=== PATIENT | male | born 1980 | race Caucasian/White ===

== ENCOUNTER 2017-09-18 11:02 | Emergency (ER) | payer OTHER ==
--- NOTE | 2017-09-18 12:33 | RAD REPORT ---
EXAM DESCRIPTION: CT - Head Brain Wo Cont - 09/18/2017 12:16 pm CLINICAL HISTORY: Syncope with dizziness and nausea COMPARISON: None. TECHNIQUE: Computed axial tomography of the head was obtained. IV contrast was not requested. All CT scans are performed using dose optimization technique as appropriate and may include automated exposure control or mA/KV adjustment according to patient size. FINDINGS: An intracranial bleed is not seen . The ventricles are normal in caliber. No extra-axial fluid collection is noted. A 5 centimeter low-density area is present within the right temporal lobe. There is suggestion of a 1 5 millimeter lesion within the right temporal lobe. Fluid within the sinuses/ mastoids is not seen. IMPRESSION: A 5 centimeter low-density area within the right temporal lobe may represent a combinati on of mass and surrounding edema. Less likely this represents an acute infarction. It is recommended that the patient have an MRI with contrast for further evaluation. The examination was discussed with Julio Brower in the Emergency Room at 12:20 p.m. September 18
--- NOTE | 2017-09-18 12:49 | RAD REPORT ---
EXAM DESCRIPTION: Noah Single View09/18/2017 12:42 pm CLINICAL HISTORY: Chest pain COMPARISON: none FINDINGS: The lungs appear clear of acute infiltrate. The heart is normal size IMPRESSION: No acute abnormalities displayed
[2017-09-18 12:50] LABS: Protime INR 1.05
[2017-09-18 12:59] LABS: Bicarbonate 25 mEq/L (21-31); Glucose Level 89 mg/dL (65-120); Potassium 3.9 mEq/L (3.6-5.0); Sodium Level 137 mEq/L (135-145)
[2017-09-18 13:05] LABS: ALT/SGPT 69 IU/L (10-60); AST/SGOT 59 IU/L (10-42); Albumin 4.5 g/dL (3.2-5.5); Alkaline Phosphatase 81 IU/L (42-121); BUN Blood Urea Nitrogen 11 mg/dL (6-20); Bilirubin Direct 0.1 mg/dL (0-0.2); Bilirubin Total 0.8 mg/dL (0.3-1.2); Protein, Total 7.5 g/dL (6.0-8.3)
[2017-09-18 13:10] LABS: Absolute Monocytes 0.5 K/uL (0.1-1.3); Absolute Neutrophil 8.4 K/uL (1.8-8.0); Basophils % 0.6 % (0-1.3); Eosinophils % 0.8 % (0-4.4); Hematocrit 44.3 % (39.6-49.0); MCH 29.3 pg (27.0-35.0); MCV 86.1 fL (80-100); MPV 8.8 fL (7.6-11.3); Monocytes % 4.4 % (3.3-12.3); RBC Red Blood Cell Count 5.15 M/uL (4.33-5.43)
--- NOTE | 2017-09-18 14:24 | RAD REPORT ---
EXAM DESCRIPTION: MRI - Brain W/Wo Cont - 09/18/2017 1:54 pm CLINICAL HISTORY: Syncope, altered mental status, abnormal CT study COMPARISON: CT head September 18 TECHNIQUE: Sagittal and axial T1-weighted images were obtained. Axial PD/heavily T2-weighted and T2- FLAIR images were obtained along with axial DWI/ADC mapping sequences. Coronal heavily T2 weighted s equence obtained. Axial and coronal post-contrast T1-weighted images were also obtained. A 20 ml Mul tiHance contrast following utilized. FINDINGS: Approximately 6 centimeter area of hypointense T1 and hyperintense T2/IR signal is present filling most of the right temporal lobe. There is localized mass effect. No ventricular entrapment s een. Signal is predominantly hypointense on diffusion-weighted imaging and predominantly hyperintense on the ADC mapping sequence. Postcontrast imaging demonstrates multiple clustered ring-enhancing les ions within this broader area of signal abnormality. Lesions range from 3 mm to 17 mm in diameter. Elsewhere in the brain parenchyma there is no other area of signal abnormality or enhancement. No sujatha ft across the midline. No other areas of signal abnormality identified. Signal voids are seen as a no rmal finding in the major intracranial vessels. No globe or orbital content abnormality. Mastoid air cells are clear. Significant mucosal thickening changes are present in the maxillary sinuses. Mastoid air cells and paranasal sinuses are clear. Findings discussed with the referring clinician 1405 hours. IMPRESSION: Multiple clustered ring-enhancing lesions 3-17 mm in size contained within a 6 centimete r area of edema filling the right temporal lobe. GBM or other primary brain malignancy is the most likely etiology. MS or infection etiologies are unl ikely. No other brain parenchymal abnormalities outside of the right temporal lobe. Prominent paranasal sinus mucosal thickening. No air-fluid level.
--- NOTE | 2017-09-18 15:11 | EDPHYS ---
Physician Documentation [facility] Name: Kei Munoz Age: 37 yrs Sex: Male : 1980 Arrival Date: 09/18/2017 Time: 11:05 Bed 19 Private MD: Cris Torres H ED Physician Brian Albarran HPI: 09/18 13:48 This 37 yrs old Male presents to ER via Wheelchair with complaints of Passed jr8 Out Prior To Arrival. 13:48 The patient has experienced syncope. Onset: The symptoms/episode began/occurred jr8 acutely, today. Duration: This was a single episode. Context: the episode(s) was witnessed, by family. Associated injury: Head/face: contusion. Associated signs and symptoms: Pertinent negatives: agitation, blurred vision, chest pain, confusion, diaphoresis, dizziness, headache, nausea, palpitations, shortness of breath, vertigo, vomiting, weakness. Current symptoms: Currently, the patient is not experiencing any symptoms, the patient feels back to baseline, no decreased level of consciousness, no confusion, no dysphasia, no headache, no paralysis, no visual changes. The patient has not experienced similar symptoms in the past. The patient has been recently seen by a physician:. Patient stated for the past couple of weeks has noticed periodic renu vu like sensations and odd dissociative memories. Had near syncopal episode in Dr. Zavala office today. Syncopal episode prior to that. Dr. Zavala referred patient to ED for further work up and evaluation of syncope and other neurological symptoms . Historical: - Allergies: 11:31 NKA; iw - Home Meds: 12:23 None [Active]; iw - PMHx: 12:23 None; iw - PSHx: 11:31 None; iw - Immunization history:: Adult Immunizations up to date. - Social history:: Smoking status: Patient/guardian denies using tobacco. ROS: 13:48 Eyes: Negative for injury, pain, redness, and discharge, ENT: Negative for injury, jr8 pain, and discharge, Neck: Negative for injury, pain, and swelling, Cardiovascular: Negative for chest pain, palpitations, and edema, Respiratory: Negative for shortness of breath, cough, wheezing, and pleuritic chest pain, Abdomen/GI: Negative for abdominal pain, nausea, vomiting, diarrhea, and constipation, Back: Negative for injury and pain, MS/Extremity: Negative for injury and deformity, Skin: Negative for injury, rash, and discoloration. 13:48 Neuro: Positive for dizziness, headache. Exam: 13:48 Eyes: Pupils equal round and reactive to light, extra-ocular motions intact. Lids and jr8 lashes normal. Conjunctiva and sclera are non-icteric and not injected. Cornea within normal limits. Periorbital areas with no swelling, redness, or edema. ENT: Nares patent. No nasal discharge, no septal abnormalities noted. Tympanic membranes are normal and external auditory canals are clear. Oropharynx with no redness, swelling, or masses, exudates, or evidence of obstruction, uvula midline. Mucous membranes moist. Neck: Trachea midline, no thyromegaly or masses palpated, and no cervical lymphadenopathy. Supple, full range of motion without nuchal rigidity, or vertebral point tenderness. No Meningismus. Cardiovascular: Regular rate and rhythm with a normal S1 and S2. No gallops, murmurs, or rubs. Normal PMI, no JVD. No pulse deficits. Respiratory: Lungs have equal breath sounds bilaterally, clear to auscultation and percussion. No rales, rhonchi or wheezes noted. No increased work of breathing, no retractions or nasal flaring. Abdomen/GI: Soft, non-tender, with normal bowel sounds. No distension or tympany. No guarding or rebound. No evidence of tenderness throughout. Back: No spinal tenderness. No costovertebral tenderness. Full range of motion. Skin: Warm, dry with normal turgor. Normal color with no rashes, no lesions, and no evidence of cellulitis. MS/ Extremity: Pulses equal, no cyanosis. Neurovascular intact. Full, normal range of motion. Neuro: Awake and alert, GCS 15, oriented to person, place, time, and situation. Cranial nerves II-XII grossly intact. Motor strength 5/5 in all extremities. Sensory grossly intact. Cerebellar exam normal. Normal gait. Vital Signs: 11:31 BP 120 / 80; Pulse 78; Resp 16 S; Temp 97.5(TE); Pulse Ox 99% on R/A; Pain 0/10; iw 12:53 BP 120 / 88 Supine; Pulse 75; Resp 20; Pulse Ox 99% on R/A; Pain 0/10; em 12:53 BP 126 / 86 Sitting; Pulse 79; Resp 18; Pulse Ox 98% on R/A; em 12:53 BP 122 / 82 Standing; Pulse 88; Resp 18; em 13:58 BP 130 / 80; Pulse 81; Resp 17; Pulse Ox 98% on R/A; em 15:15 BP 120 / 83; Pulse 83; Resp 18; Temp 98.1; Pulse Ox 100% on R/A; Pain 0/10; em MDM: 11:33 Patient medically screened. [facility] 15:09 Data reviewed: vital signs, nurses notes, lab test result(s), EKG, radiologic studies, [facility] CT scan, MRI, plain films. Data interpreted: Pulse oximetry: on room air is 98 %. Interpretation: normal. Counseling: I had a detailed discussion with the patient and/or guardian regarding: the historical points, exam findings, and any diagnostic results supporting the discharge/admit diagnosis, lab results, radiology results, the need to transfer to another facility, for higher level of care, [facility] does not immediately have the required specialist. ED course: [facility] contacted and will accept patient for neurosurgical evaluation . 09/18 12:06 Order name: Basic Metabolic Panel; Complete Time: 13:11 09/18 12:06 Order name: BNP; Complete Time: 13:09/18 12:06 Order name: CBC with Diff; Complete Time: 13:34 8 09/18 12:06 Order name: LFT's; Complete Time: 13:11 09/18 12:06 Order name: Magnesium; Complete Time: 13:11 09/18 12:06 Order name: PT-INR; Complete Time: 13:11 09/18 12:06 Order name: XRAY Chest (1 view); Complete Time: 13:11 09/18 12:06 Order name: EKG; Complete Time: 12:07 09/18 12:06 Order name: Troponin (emerg Dept Use Only); Complete Time: 13:11 8 09/18 12:06 Order name: CT Head Brain wo Cont; Complete Time: 12:47 jr8 09/18 12:47 Order name: Brain W/Wo Cont; Complete Time: 14:28 EDWV 09/18 15:04 Order name: Urine Dipstick--Ancillary (enter results); Complete Time: 15:22 sg 09/18 12:06 Order name: Cardiac monitoring; Complete Time: 12:43 jr8 09/18 12:06 Order name: EKG - Nurse/Tech; Complete Time: 12:42 jr8 09/18 12:06 Order name: IV Saline Lock; Complete Time: 12:43 8 09/18 12:06 Order name: Labs collected and sent; Complete Time: 12:45 8 09/18 12:06 Order name: O2 Per Protocol; Complete Time: 13:13 jr8 09/18 12:06 Order name: O2 Sat Monitoring; Complete Time: 12:44 8 09/18 12:06 Order name: Urine Dipstick-Ancillary (obtain specimen); Complete Time: 13:13 8 09/18 12:06 Order name: Orthostatics; Complete Time: 13:13 jr8 Administered Medications: No medications were administered Disposition: 17:18 Co-signature as Attending Physician, Brian Albarran MD I agree with the assessment and kdr plan of care. Disposition: 09/18/17 15:[address] [facility]. 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 - Reason for transfer: Higher level of care. - Accepting physician is Dr. Billings . - Condition is Stable. - Problem is new. - Symptoms are unchanged. Signatures: Dispatcher [employer] EDMS Brian Albarran MD MD kdr Brandon Hyatt, GATE KEEPER GATE KEEPER em Connie Coleman, RONA RN Julio Vera PA PA jr8 Corrections: (The following items were deleted from the chart) 12:47 12:28 Brain With Cont ordered. EDMS EDMS 12:47 12:37 Brain With Cont+MRI.RAD.BRZ ordered. EDMS EDMS
--- NOTE | 2017-09-18 15:11 | ER ---
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 Choudhury's office and had a near syncopal episode while in office, pt now feeling tired and weak but dizziness is now gone, denies CP or palpitations or SOB. Transition of care: patient was not received from another setting of care. Onset of symptoms was September 18, 2017. Initial Sepsis Screen: Does the patient meet any 2 criteria? No. Patient's initial sepsis screen is negative. Does the patient have a suspected source of infection? No. Patient's initial sepsis screen is negative. Care prior to arrival: None. 11:22 Method Of Arrival: Wheelchair iw 11:22 Acuity: LUZ 3 iw Historical: - Allergies: 11:31 NKA; iw - Home Meds: 12:23 None [Active]; iw - PMHx: 12:23 None; iw - PSHx: 11:31 None; iw - Immunization history:: Adult Immunizations up to date. - Social history:: Smoking status: Patient/guardian denies using tobacco. Screenin:00 Abuse screen: Denies threats or abuse. Nutritional screening: No deficits noted. em Tuberculosis screening: No symptoms or risk factors identified. Fall Risk None identified. Assessment: 11:30 General: Appears in no apparent distress. comfortable, Behavior is calm, cooperative. em General: Reports falling and hitting face this morning, reports having aura type symptoms with "strong imagery and smells" before having a syncopal episode. Pain: Denies pain. Neuro: Level of Consciousness is awake, alert, obeys commands, Oriented to person, place, time, situation, Overcoil Stepper are equal bilaterally Gait is steady, Speech is normal, Reports dizziness, upon standing a syncopal episode Denies. Cardiovascular: Capillary refill < 3 seconds Patient's skin is warm and dry. Respiratory: Airway is patent Respiratory effort is even, unlabored, Respiratory pattern is regular, symmetrical, Breath sounds are clear bilaterally. GI: Abdomen is flat, Reports nausea, vomiting. : Urine is clear. EENT: No signs and/or symptoms were reported regarding the EENT system. Derm: Skin is intact, Skin is pink, warm \\T\\ dry. Wound noted nose Wound is cover with band aid, no apparent bleeding noted. Musculoskeletal: Range of motion: intact in all extremities. 11:40 Reassessment: Patient appears in no apparent distress at this time. I agree with above iw assessment by Brandon Hyatt LVN. 12:40 Reassessment: Patient appears in no apparent distress at this time. Patient and/or em family updated on plan of care and expected duration. Pain level reassessed. Patient is alert, oriented x 3, equal unlabored respirations, skin warm/dry/pink. Patient states symptoms have improved. 13:00 Reassessment: Patient appears in no apparent distress at this time. pt wheeled to [facility] em via wheelchair by medical supply technician. 14:08 Reassessment: Patient appears in no apparent distress at this time. Patient and/or em family updated on plan of care and expected duration. Pain level reassessed. returned from MRI, placed back on the monitor. 14:27 Reassessment: Patient appears in no apparent distress at this time. RICHARD Kim at bedside em to discuss POC. 15:02 Reassessment: Patient appears in no apparent distress at this time. Patient and/or em family updated on plan of care and expected duration. Pain level reassessed. Patient is alert, oriented x 3, equal unlabored respirations, skin warm/dry/pink. Bozena Dolan at bedside. 15:38 Reassessment: Patient appears in no apparent distress at this time. report called to heidi Choudhury RN at [facility], awaiting EMS transport to facility. 15:50 Reassessment: Patient appears in no apparent distress at this time. report given to em EMS. Vital Signs: 11:31 BP 120 / 80; Pulse 78; Resp 16 S; Temp 97.5(TE); Pulse Ox 99% on R/A; Pain 0/10; iw 12:53 BP 120 / 88 Supine; Pulse 75; Resp 20; Pulse Ox 99% on R/A; Pain 0/10; em 12:53 BP 126 / 86 Sitting; Pulse 79; Resp 18; Pulse Ox 98% on R/A; em 12:53 BP 122 / 82 Standing; Pulse 88; Resp 18; em 13:58 BP 130 / 80; Pulse 81; Resp 17; Pulse Ox 98% on R/A; em 15:15 BP 120 / 83; Pulse 83; Resp 18; Temp 98.1; Pulse Ox 100% on R/A; Pain 0/10; em ED Course: 11:05 Patient arrived in ED. rg4 11:05 Cris Torres DO is Private Physician. rg4 11:22 Russell Eng PA is PHCP. cp 11:22 Brian Albarran MD is Attending Physician. cp 11:31 Triage completed. iw 11:31 Antipyretic given from triage as ordered by the ER provider. iw 11:33 Julio Brower PA is PHCP. jr8 11:33 Brian Albarran MD is Attending Physician. jr8 12:[address] jg1 12:14 Brandon Hyatt LVN is Primary Nurse. em 12:16 CT completed. Patient tolerated procedure well. Patient moved back from CT. vm2 12:17 CT Head Brain wo Cont In Process Unspecified. EDMS 12:34 EKG done, by lead quality control technician. reviewed by Julio RAMOS. vh 12:35 X-ray completed. Portable x-ray completed in exam room. Patient tolerated procedure ml well. 12:37 XRAY Chest (1 view) In Process Unspecified. EDMS 12:45 Inserted saline lock: 20 gauge in right antecubital area, using aseptic technique. em Blood collected. 12:45 Initial lab(s) drawn, by me, sent to lab. em 13:02 Patient moved to MRI via wheelchair. em2 13:12 Arm band placed on. em 13:28 Brain W/Wo Cont In Process Unspecified. EDMS 13:54 MRI completed. Patient tolerated well. Patient moved back from MRI. ka 14:06 No provider procedures requiring assistance completed. em 14:18 Patient has correct armband on for positive identification. Bed in low position. Call em light in reach. 14:[address] [facility] at 1434 with Julieta Dueñas Transfer coordination. eb 15:00 \\T\\[id number] Leonarda RAMOS speaking with Dr. Yeh for transfer. eb 15:01 \\T\\[id number] administrative approval given by Julieta Dueñas from [facility] regional transfer liaison eb pt to go to room 2222. 16:13 Patient transferred, IV remains in place. em Administered Medications: No medications were administered Outcome: 15:11 ER care complete, transfer ordered by MD. fraser 16:12 Transferred by ground EMS to [facility], [facility], Transfer form completed. em X-rays sent w/ patient. 16:12 Condition: good 16:12 Instructed on the need for transfer, Demonstrated understanding of instructions. 16:14 Patient left the ED. em Signatures: Dispatcher [employer] Siomara Alvarez jBrandon Feliciano, WELL DRILL OPERATOR CABLE TOOL WELL DRILL OPERATOR CABLE TOOL em Connie Coleman, Emilie Santa RN, Josh, PA PA jr8 Ras Ratliff em2 Evette Yang Corey, PA PA cp Aguilera, Katelyn ka Garcia, Rubi 4 Brittani Marquez 2 Amy Connor Corrections: (The following items were deleted from the chart) 13:11 13:05 General: Appears in no apparent distress. comfortable, Behavior is calm, em cooperative, em 13:11 13:05 Pain: Denies pain. em em 13:11 13:05 General: Reports falling and hitting face this morning, reports having aura type em symptoms and having a syncopal episode em 13:11 13:05 Neuro: Level of Consciousness is awake, alert, obeys commands, Oriented to em person, place, time, situation, Overcoil Stepper are equal bilaterally Gait is steady, Speech is normal, Reports dizziness, upon standing em 13:11 13:05 Cardiovascular: Capillary refill < 3 seconds Patient's skin is warm and dry. em em 13:11 13:05 Respiratory: Airway is patent Respiratory effort is even, unlabored, Respiratory em pattern is regular, symmetrical, Breath sounds are clear bilaterally. em 13:11 13:05 GI: Abdomen is flat, em em 13:11 13: : Urine is clear, em em 13: EENT: No signs and/or symptoms were reported regarding the EENT system. em em 13: Derm: Skin is intact, Skin is pink, warm \\T\\ dry. em em 13: Musculoskeletal: Range of motion: intact in all extremities, em em 14: 11:30 General: Reports falling and hitting face this morning, reports having aura type em symptoms and having a syncopal episode em 14 11:30 Derm: Skin is intact, Skin is pink, warm \\T\\ dry. em em 15: 11:31 BP 120 / 80; Pulse 78bpm; Resp 16bpm; Spontaneous; Pulse Ox 99% RA; Pain 0/10; iw iw
[2017-09-18 15:13] LABS: Urine Blood NEGATIVE (NEG); Urine Glucose NEGATIVE (NEG); Urine Protein NEGATIVE (NEG); Urine Specific Gravity 1.015 (1.005-1.030); Urine pH 8.5 (5.0-7.0)
--- NOTE | 2017-09-18 16:24 | EKG ---
Test Date: 2017-09-18 Test Time: 12:27:31 Mechanical Engineering Technologist: AMEYA MEASUREMENT RESULTS: Intervals: Rate: 69 ID: [id number] QRSD: 90 QT: 368 QTc: 394 Brice: P: 68 ID: [id number] QRS: 83 T: 77 INTERPRETIVE STATEMENTS: Normal sinus rhythm Normal ECG No previous ECG available for comparison Electronically Signed On 09-18-17 16:23:28 CDT by Seamus Maharaj
== END 2017-09-18 16:14 | disposition short-term general hospital (02) ==
LOC: ER 11:02
DX: R55 Syncope and collapse (principal); R42 Dizziness and giddiness
CPT/HCPCS: 36415; 70450; 70553; 71045; 80048; 80076; 81003; 83735; 83880; 84484; 85025; 85610; 93005; 99285; A9577

== ENCOUNTER 2018-12-02 18:30 | Emergency (ER) | payer OTHER ==
--- OUTSIDE RECORDS SUMMARY | 2018-12-02 18:32 | XMS REPORT | Clinical Summary ---
:1980 Author Organization [facility] Address [address] [place] [address] Care Team Providers Name Role Phone Denise Primary Care Provider Allergies Active Allergy Reactions Severity Noted Date Comments Grass Pollen-October Grass Standard 09/18/2017 Mold 09/18/2017 Medications Medication Sig Dispensed Refills Start Date End Date Status cetirizine (ZYRTEC) Take 10 mg by 0 Active 10 MG tablet mouth daily. fluticasone (FLONASE) 1 spray by Nasal 0 Active 50 mcg/actuation route 2 (two) nasal spray times daily. montelukast Take 10 mg by 0 Active (SINGULAIR) 10 mg mouth nightly. tablet dexamethasone Take 2 tablets 7 tablet 0 09/25/2017 Active (DECADRON) 1 MG at lunch and tablet dinner time today, then 1 tablet three times a day tomorrow only, then stop. levETIRAcetam Take 1 tablet 60 tablet 2 09/25/2017 09/25/2018 (KEPPRA) 1000 MG (1,000 mg total) tablet by mouth 2 (two) times daily. Active Problems Problem Noted Date Cerebral edema 09/23/2017 Post-operative pain 09/23/2017 Partial seizure 09/21/2017 Brain mass 09/18/2017 Seasonal allergies 09/18/2017 Syncopal episodes 09/18/2017 Encounters Date Type Specialty Care Team Description 09/13/2018 Hospital Encounter Radiology Jude Dickerson Glioblastoma (HCC) MD Mikael 08/20/2018 Orders Only Neurology Jude Dickerson Glioblastoma (HCC) MD Mikael (Primary Dx) 07/20/2018 Hospital Encounter Radiology Jude Dickerson Glioblastoma (HCC) MD Mikael 07/06/2018 Orders Only Neurology Jude Dickerson Glioblastoma (HCC) MD Mikael (Primary Dx) 05/26/2018 Hospital Encounter Radiology Tuan Jude Glioblastoma (HCC) MD Mikael 04/28/2018 Orders Only Neurology Jude Dickerson Glioblastoma (HCC) MD Mikael (Primary Dx) 03/31/2018 Orders Only Neurology Jude Dickerson Glioblastoma (HCC) MD Mikael (Primary Dx) 03/01/2018 Hospital Encounter Radiology Lionel Waters Glioblastoma (HCC) MD Hedy 03/01/2018 Orders Only Neurology Jude Dickerson Glioblastoma (HCC) MD Mikael (Primary Dx) 02/26/2018 Orders Only Radiation Oncology Lionel Waters (HCC ) MD Hedy (Primary Dx) 01/04/2018 Procedure visit Radiation Oncology Lionel Waters MD 01/04/2018 Hospital Encounter Radiology Lionel Waters Glioblastoma (HCC) MD Hedy 01/03/2018 Orders Only Radiation Oncology Lionel Waters Glioblastoma (HCC ) MD Hedy (Primary Dx) after 12/01/2017 Social History Tobacco Use Types Packs/Day Years Used Date Never Smoker Smokeless Tobacco: Never Used Alcohol Use Drinks/Week oz/Week Comments No Sex Assigned at Date Recorded Not on file Job Start Date Occupation Industry Not on file Not on file Not on file Travel History Travel Start Travel End No recent travel history available. Last Filed Vital Signs Not on file Plan of Treatment Not on file Implants Implanted Type Area Clinician Oncology Device Shelf Model / Identifier Expiration Serial / Date Lot Loyd [facility] Full Strlprep 10ml [id number] - [id number] Cement/F Right: LOREDO: BIOSCI 02/05/2019 [id number] / Implanted: Qty: 1 on 09/22/2017 by Merrill Marrufo MD iller/Bebeto Head / hesive [id number] Sealant Durasl Spine 5ml [id number] - [id number] Cement/F Right: [employer]TE[employer]RA LIFESCI 07/22/2018 [id number] / Implanted: Qty: 1 on 09/22/2017 by Merrill Marrufo MD iller/Bebeto Head / hesive [id number] Plt W/Tab Un3 2h [id number] - [id number] Fracture Right: LUIS ALBERTO:CRANIOMA [id number] / Implanted: Qty: 1 on 09/22/2017 by Merrill Marrufo MD /Fixatio Head XILLOFACIAL / n Cover Giovanna Hole Low Prof 14mm [id number] - [id number] Fracture Right: LUIS ALBERTO: LUIS ALBERTO [id number] / Implanted: Qty: 1 on 09/22/2017 by Merrill Marrufo MD /Fixatio Head LEIBINGER / n Plt Un3 16h Str [id number] - [id number] Fracture Right: LUIS ALBERTO:CRANIOMA [id number] / Implanted: Qty: 1 on 09/22/2017 by Merrill Marrufo MD /Fixatio Head XILLOFACIAL / n Scr Un3 [place] Self Drl 1.5x4mm [id number] - [id number] Fracture Right: LUIS ALBERTO: CRANIOMA [id number] / Implanted: Qty: 14 on 09/22/2017 by Merrill Marrufo MD /Fixatio Head XILLOFACIAL / n Procedures Procedure Name Priority Date/Time Associated Diagnosis Comments MR BRAIN WITHOUT & Routine 09/13/2018 3:25 Glioblastoma (HCC) Results for this WITH IV CONTRAST PM CDT procedure are in the results section. MR BRAIN WITHOUT & Routine 07/20/2018 11:00 Glioblastoma (HCC) Results for this WITH IV CONTRAST AM ASSEMBLER GARMENT FORM procedure are in the results section. MR BRAIN WITHOUT & Routine 05/26/2018 9:31 Glioblastoma (HCC) Results for this WITH IV CONTRAST AM ASSEMBLER GARMENT FORM procedure are in the results section. MR BRAIN WITHOUT & Routine 03/01/2018 11:40 Glioblastoma (HCC) Results for this WITH IV CONTRAST AM CDT procedure are in the results section. MR BRAIN WITHOUT & Routine 01/04/2018 8:58 Glioblastoma (HCC) Results for this WITH IV CONTRAST AM CDT procedure are in the results section. after 12/01/2017 Results MR brain without & with IV contrast (09/13/2018 3:25 PM CDT)Only the most recent of5 resultswithin the time period is included. Specimen Narrative Performed At FINAL REPORT [facility] MR, BRAIN, WITH \T\ WITHOUT CONTRAST INDICATION: Neoplasm: head, SERVICE LINE LAYER, rx monitor or f/u TECHNIQUE: Multiplanar, multisequence MR imaging of the brain was obtained before and after uneventful administration of gadolinium contrast. COMPARISON: 07/20/18 FINDINGS: The area of increased linear enhancement noted in the most recent examination has increased in size, now measuring approximately 11 mm in greatest transverse dimension. Additionally, there is nodular enhancement along the medial/inferior portion of the resection cavity (axial image 10, annotated sagittal image 22). Increased T2/FLAIR signal is also present adjacent to this lesion, greater in volume than in the prior exam. A peripheral focus of enhancement abutting the skull base measures 11 mm in greatest transverse dimension. Multiple additional subcentimeter nodular foci are annotated on sagittal series (images 19, 20, 21, and 23). No abnormal signal characteristics or postcontrast enhancement is identified in the left hemisphere or within the posterior fossa. The resection cavity volume is unchanged. Orbital contents are unremarkable. Paranasal sinuses are clear. IMPRESSION: Progression of intracranial metastatic disease as evidenced by increasing volume, enhancement and surrounding T2/FLAIR hyperintensity in the previously noted peripheral lesion in the resection cavity as well as multiple distal lesions in the right temporal lobe. Signed: JR Connor Robert MD Report Verified Date/Time:09/13/2018 17:50:06 Reading Location: [facility] Radiology Reading Room Procedure Note Interface, External Ris In - 09/13/2018 5:52 PM CDT FINAL REPORT MR, BRAIN, WITH \T\ WITHOUT CONTRAST INDICATION: Neoplasm: head, SERVICE LINE LAYER, rx monitor or f/u TECHNIQUE: Multiplanar, multisequence MR imaging of the brain was obtained before and after uneventful administration of gadolinium contrast. COMPARISON: 07/20/18 FINDINGS: The area of increased linear enhancement noted in the most recent examination has increased in size, now measuring approximately 11 mm in greatest transverse dimension. Additionally, there is nodular enhancement along the medial/inferior portion of the resection cavity (axial image 10, annotated sagittal image 22). Increased T2/FLAIR signal is also present adjacent to this lesion, greater in volume than in the prior exam. A peripheral focus of enhancement abutting the skull base measures 11 mm in greatest transverse dimension. Multiple additional subcentimeter nodular foci are annotated on sagittal series (images 19, 20, 21, and 23). No abnormal signal characteristics or postcontrast enhancement is identified in the left hemisphere or within the posterior fossa. The resection cavity volume is unchanged. Orbital contents are unremarkable. Paranasal sinuses are clear. IMPRESSION: Progression of intracranial metastatic disease as evidenced by increasing volume, enhancement and surrounding T2/FLAIR hyperintensity in the previously noted peripheral lesion in the resection cavity as well as multiple distal lesions in the right temporal lobe. Signed: JR Nikolas, Orquidea LORENZO Report Verified Date/Time: 09/13/2018 17:50:06 Reading Location: [facility] Reading Room Performing Organization Address City/State/Zipcode Phone Number GE RIS after 12/01/2017 Insurance Payer Benefit Plan / Group Subscriber ID Type Phone Address [employer] - [employer] SELECT US ACCESS xxxxxxxxxx HMO/POS ([place]) [place] [address] Advance Directives For more information, please contact:[address] [phone] Code Status Date Activated Date Inactivated Comments Full Code 09/22/2017 2:25 PM 09/25/2017 1:22 PM This code status was determined by: Patient Full Code 09/18/2017 6:17 PM 09/22/2017 2:25 PM This code status was determined by: Patient
--- OUTSIDE RECORDS SUMMARY | 2018-12-02 18:32 | XMS REPORT ---
:1980 [facility] Address [address] [place] [address] Dr. Vieyra [address] [place] [id number] Care Team Providers Name Role Phone BENJAMIN DUTTONMarilee Unavailable Unavailable Problems This patient has no known problems. Allergies, Adverse Reactions, Alerts This patient has no known allergies or adverse reactions. Medications This patient has no known medications. Results Test Description Test Time Test Comments Text Results Atomic Results Result Comments MR, BRAIN, WITH 2018-09-13 17:50:00 FINAL REPORT MR, BRAIN, WITH \\T\\ WITHOUT CONTRAST INDICATION: Neoplasm: head, ARM[employer], rx monitor or f/u TECHNIQUE: Multiplanar, multisequence MR imaging of the brain was obtained before and after uneventful administration of gadolinium contrast. COMPARISON: 07/20/18 FINDINGS:The area of increased linear enhancement noted in [...] right temporal lobe. Signed: JR Connor Robert MDReport Verified Date/Time: 09/13/2018 17:50:06 Reading Location: [facility] Radiology Reading Room , BRAIN, WITH 2018-07-20 14:34:00 FINAL REPORT MRI Brain with and without contrast Clinical History: Neoplasm: head, ARM[employer]LE [employer], recurrence, suspected/known Technique: MRI of the brain utilizing axial T1, T2, FLAIR, GRE, DWI, sagittal T1; and postgadolinium axial, sagittal, and coronal T1-weighted images. Comparisons: MRI 05/26/2018, 03/01/2018, 01/04/2018, 09/23/2017 Findings: Right sided craniotomy changes are again seen with an anterior temporal cystic resection cavity. There is a new 4 mm linear focus of enhancement along the posterior superior surgical margin abutting the temporal lobe. Adjacent marginal nonenhancing FLAIR signal abnormality also appear slightly increased. Right insular FLAIR signal abnormality is unchanged without additional areas of abnormal enhancement. There is no evidence of acute infarct or hemorrhage. There is no hydrocephalus or midline shift. The craniocervical junction is preserved. The major intracranial flow-voids appear patent. IMPRESSION: Since 05/26/2018, new focal linear enhancement along the posterior superior temporal resection margin with slightly increased FLAIR signal abnormality. The appearance is compatible with progression of residual neoplasm. Signed: Rupali Sher MDReport Verified Date/Time: 07/20/2018 14:34:38 Reading Location: [facility] Neuro Reading Room , BRAIN, WITH 2018-05-26 10:22:00 FINAL REPORT MR, BRAIN, WITH \\T\\ WITHOUT CONTRAST INDICATION: Neoplasm: head, ARM[employer], rx monitor or f/u TECHNIQUE: Multiplanar, multisequence MR imaging of the brain was obtained before and after uneventful administration of gadolinium contrast. COMPARISON: March 01, 2018 FINDINGS:Stable cystic changes within the right middle cranial fossa resection cavity. Previously noted increased T2 signal along the posterior margin of the resection cavity and involving the right external capsule are stable. There is no associated postcontrast enhancement. Evaluation of the remaining brain parenchyma in both supratentorial and infratentorial compartments reveals no abnormal signal or postcontrast enhancement. Midline is normally positioned. Vascular structures are unremarkable. The craniocervical junction is normal. Ventricular configuration is within normal limits. There is no acute osseous abnormality. Paranasal sinuses reveal mild mucosal polyposis and thickening in the maxillary sinuses, greater on the left. IMPRESSION: Stable operative changes in the middle cranial fossa without evidence for progression or recurrence. Signed: JR Connor Robert MDReport Verified Date/Time: 05/26/2018 10:22:37 Reading Location: [facility] Radiology Reading Room , BRAIN, WITH 2018-03-01 14:14:00 Location->[facility] FINAL REPORT PATIENT ID: Favio Duff [id number] MRI brain with and without contrast Comparison: None Reason for exam: January 04, 2018 Discussion: Multiplanar MR imaging of the brain was provided eoj-uwx-jrit IV gadolinium administration using T1, T2, FLAIR, T2 star, diffusion weighted sequences, and ADC map imaging. Right-sided craniotomy changes are noted with right-sided anterior temporal lobectomy cavity. Nonenhancing hazy T2 hyperintense signal alterations are seen involving the insula and the residual medial temporal lobe unchanged. No concerning regional enhancement. There are no intracranial hematomas, other masses, hydrocephalus, shift, or extra-axial collections. There are no areas of abnormal enhancement or abnormal diffusion restriction. Flow-voids are seen in the basilar and internal carotid arteries as well as in the large posterior dural sinuses. The pineal, sella, and craniocervical junction regions are unremarkable. The visualized orbital contents, skullbase and surrounding soft tissues are unremarkable. Mucosal thickening is seen within the maxillary sinuses. Impressions: Stable postoperative appearance with residual nonenhancing insula and medial temporal signal alterations. Signed: Paras Abarca Verified Date/Time: 03/01/2018 14:14:37 Reading Location: [facility] B1 C013V Neuro Reading Room , BRAIN, WITH 2018-01-04 10:51:00 Location->[facility] FINAL REPORT PATIENT ID: Favio Duff [id number] MRI brain with and without contrast Comparison: October 14, 2017 Reason for exam: GBM status post surgery and chemoradiation Discussion: Multiplanar MR imaging of the brain was provided pps-adj-jdce IV gadolinium administration using T1, T2, FLAIR, T2 star, diffusion weighted sequences, and ADC map imaging. There is a right temporal lobe operative cavity anteriorly with some areas of hemosiderin stain lining the posterior cavity margin. There is no concerning enhancement currently. Ill-defined T2 hyperintense signal alteration is seen involving insula concerning for nonenhancing subtle neoplasm. Similar signal alteration is seen in the residual right medial temporal and hippocampal region where additional nonenhancing neoplasm could not be excluded. No intracranial hematoma, hydrocephalus, midline shift, extra-axial collection. There are no other areas of abnormal enhancement or abnormal diffusion restriction. Flow-voids are seen in the basilar and internal carotid arteries as well as in the large posterior dural sinuses. The pineal, sella, and craniocervical junction regions are unremarkable. The visualized orbital contents, paranasal sinuses, skullbase and surrounding soft tissues are unremarkable. Impressions: Subtle nonenhancing signal alterations near the right temporal lobe operative cavity as discussed concerning for nonenhancing neoplasm. No current concerning enhancement. Signed: Paras Abarca Verified Date/Time: 01/04/2018 10:51:55 Reading Location: [address] Neuro Reading Room , BRAIN, WITH 2017-10-14 16:07:00 FINAL REPORT MRI Brain with and without contrast INDICATION: Malignant neoplasm of brain. TECHNIQUE: Multiplanar, multisequence MR imaging of the brain was performed, utilizing the following imaging sequences: Axial T1, T2, FLAIR, DWI, GRE; sagittal T1; postcontrast axial, sagittal, and coronal T1. High-resolution axial postcontrast T1-weighted images were obtained per [employer] protocol COMPARISON: MRI brain 09/23/2017 FINDINGS:There is evolution of right sided craniotomy changes with anterior temporal lobe operative cavity, partial resorption of operative site and extra axial hemorrhages, and improvement in operative cavity margin edema. New mild operative cavity margin enhancement suggests granulation changes, though minimal enhancing neoplasm cannot be excluded. A new 5 mm focus of nodular enhancement in the right inferior basal ganglia is suggestive of neoplasm. Small diffusion restricted foci on the operative cavity margins in the right mesial temporal lobe may reflect residual ischemia and/or hypercellular neoplasm. There are nonenhancing signal changes in the right temporal lobe, hippocampus, insula, and operculum are in keeping with infiltrative neoplasm. Mass effect is improved, with no current midline shift. A 3-4 mm extra axial collection is seen beneath the craniotomy site. Pneumocephalus has resolved. There is no hydrocephalus or acute infarct. The major pit[place]'s point of [place] flow voids are maintained. The sella, craniocervical junction, and orbits are unremarkable. There is chronic polypoid sinus mucosal disease and moderate volume right mastoid air cell fluid. Scalp postoperative changes and edema are improved. IMPRESSION: Since 09/23/2017, improved post operative changes with operative cavity margin granulation changes and new small right inferior basal ganglia enhancing focus suggestive of neoplasm. Nonenhancing signal changes in keeping with infiltrative neoplasm again noted. No worrisome current mass effect. Signed: Bridger Wadsworth MDReport Verified Date/Time: 10/14/2017 16:07:37 Reading Location: [address] Consult Reading Room UE EXAM 2017-10-05 11:54:00 Surgical Pathology Report Case: [id number] Authorizing Provider: Merrill Marrufo MD Collected: 09/22/2017 1027 Ordering Location: [facility] PERIOPERATIVE Received: 09/22/2017 1032 SERVICES Pathologist: Oscar Lara MD Specimens: A) - Tumor, right temporal tumor B) - Tumor, right temporal tumor Outside molecular studies are performed at [facility] for assessment of MGMT gene promoter methylation. It is NOT DETECTED in this patient's tumor.Please see attached report.Addendum electronically signed by Oscar Lara MD on 10/05/2017 at 11:54 AMA. 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 An addendum report will be issued upon receipt of these results.[id number] of right temporal lobeA. Right temporal tumor; B. Mass of right temporal lobeA. Received fresh for intraoperative consultation labeled with the patient's information and "right temporal tumor" is a 1 x 0.9 x 0.3 cm aggregate of chicas-white hemorrhagic soft glistening tissue. A squash prep is performed. A portion of the specimen is submitted for frozen section diagnosis in FSA1. The remainder of the specimen is submitted in A1. SH/plB. Received in formalin labeled with the patient's information, "right temporal tumor" is a 6 x 5.6 x 2.5 cm aggregate of chicas-white soft tissue with abundant necrosis and hemorrhage. Sectioning reveals a chicas-white friable cut surface within normal-appearing brain parenchyma. Fire Technician sections of tissue are submitted in cassette B1 through B6. SH/plRIGHT TEMPORAL LOBE TUMOR, CRANIOTOMY: - GLIOBLASTOMA THESE FINDINGS ARE REPORTED TO OR-[address] LARA ON September AT 10:51 A.M.A-B. Sections of tumor show normal brain parenchyma infiltrated by atypical large tumor cells with high nuclear to cytoplasmic ratios, nuclear hyperchromasia, multinucleation, and irregular borders. The chromatin is vesicular with prominent nucleoli. There is abundant necrosis, with and without pseudopalisading, and vascular proliferation. The tumor cells are positive for GFAP and p53. The tumor cells are negative for IDH-1. The following special studies were performed on this case and the interpretation is incorporated in the diagnostic report above: Block A2- IDH1, GFAP, p53. The immunohistochemistry test was developed and its performance characteristics determined by [facility], Pathology Laboratory. It has not been cleared or approved by the U.S. Food and Drug Administration. The FDA has determined that such clearance or approval is not necessary. The test is used for clinical purposes. It should not be regarded as investigational or for research. This laboratory is certified under the Clinical Laboratory Improvement Amendments of 1988 (CLIA-88) as qualified to perform high complexity clinical laboratory testing. TOXOPLASMA GONDII ANTIBODY, IGM 2017-09-25 15:04:00 Test Item Value Reference Range Comments TOXOPLASMA IGM ANTIBODY (KEMAR) (test huyj=639) Negative POCT-GLUCOSE [id number] 09:02:00 Test Item Value Reference Range Comments POC-GLUCOSE METER (BEAKER) 87 mg/dL 70-[address] [facility] [address] (test ztev=1209) [facility] [address] BASIC METABOLIC [id number] 05:48:00 Test Item Value Reference Range Comments SODIUM (BEAKER) (test 136 meq/L 136-145 aqzp=618) POTASSIUM (BEAKER) (test 4.7 meq/L 3.5-5.1 Specimen slightly omik=677) hemolyzed CHLORIDE (BEAKER) (test 108 meq/L 98-107 gkgk=890) CO2 (BEAKER) (test 17 meq/L 22-29 euig=525) BLOOD UREA NITROGEN 23 mg/dL 7-21 (BEAKER) (test mroo=946) CREATININE (BEAKER) (test 0.66 mg/dL 0.57-1.25 Specimen slightly this=669) hemolyzed GLUCOSE RANDOM (BEAKER) 114 mg/dL 70-105 (test gpew=240) CALCIUM (BEAKER) (test 9.0 mg/dL 8.4-10.2 dqyr=551) EGFR (BEAKER) (test 137 mL/min/1.73 sq m ESTIMATED GFR IS NOT ceor=9507) ACCURATE CREATININE CLEARANCE IN PREDICTING GLOMERULAR FILTRATION RATE. ESTIMATED GFR IS NOT APPLICABLE FOR DIALYSIS PATIENTS. CBC W/PLT COUNT & AUTO [id number] 05:35:00 Test Item Value Reference Range Comments WHITE BLOOD CELL COUNT (BEAKER) (test eecc=418) 17.4 K/ L 3.5-10.5 RED BLOOD CELL COUNT (BEAKER) (test jrwi=235) 4.01 M/ L 4.63-6.08 HEMOGLOBIN (BEAKER) (test eceu=926) 11.5 GM/DL 13.7-17.5 HEMATOCRIT (BEAKER) (test iegz=489) 34.8 % 40.1-51.0 MEAN CORPUSCULAR VOLUME (BEAKER) (test uunb=382) 86.8 fL 79.0-92.2 MEAN CORPUSCULAR HEMOGLOBIN (BEAKER) (test 28.7 pg 25.7-32.2 auii=244) MEAN CORPUSCULAR HEMOGLOBIN CONC (BEAKER) (test 33.0 GM/DL 32.3-36.5 lamf=021) RED CELL DISTRIBUTION WIDTH (BEAKER) (test 11.7 % 11.6-14.4 izqt=865) PLATELET COUNT (BEAKER) (test qrww=707) 254 K/CU MM 150-450 MEAN PLATELET VOLUME (BEAKER) (test ivic=574) 10.2 fL 9.4-12.4 NUCLEATED RED BLOOD CELLS (BEAKER) (test 0 /100 WBC 0-0 ccbo=778) NEUTROPHILS RELATIVE PERCENT (BEAKER) (test 90 % qjkg=130) LYMPHOCYTES RELATIVE PERCENT (BEAKER) (test 6 % hgyp=995) MONOCYTES RELATIVE PERCENT (BEAKER) (test 3 % kdki=162) EOSINOPHILS RELATIVE PERCENT (BEAKER) (test 0 % bucb=840) BASOPHILS RELATIVE PERCENT (BEAKER) (test 0 % ousi=869) NEUTROPHILS ABSOLUTE COUNT (BEAKER) (test 15.65 K/ L 1.78-5.38 xkqi=349) LYMPHOCYTES ABSOLUTE COUNT (BEAKER) (test 1.06 K/ L 1.32-3.57 epdr=095) MONOCYTES ABSOLUTE COUNT (BEAKER) (test 0.55 K/ L 0.30-0.82 heon=575) EOSINOPHILS ABSOLUTE COUNT (BEAKER) (test 0.01 K/ L 0.04-0.54 syot=467) BASOPHILS ABSOLUTE COUNT (BEAKER) (test 0.02 K/ L 0.01-0.08 oduw=075) IMMATURE GRANULOCYTES-RELATIVE PERCENT (BEAKER) 1 % 0-1 (test xoxa=3299) CBC W/PLT COUNT & AUTO [id number] 14:23:00 Test Item Value Reference Range Comments WHITE BLOOD CELL COUNT (BEAKER) (test wzrd=294) 22.9 K/ L 3.5-10.5 RED BLOOD CELL COUNT (BEAKER) (test atqq=400) 3.98 M/ L 4.63-6.08 HEMOGLOBIN (BEAKER) (test dzca=301) 11.5 GM/DL 13.7-17.5 HEMATOCRIT (BEAKER) (test cjsd=104) 33.9 % 40.1-51.0 MEAN CORPUSCULAR VOLUME (BEAKER) (test lvur=442) 85.2 fL 79.0-92.2 MEAN CORPUSCULAR HEMOGLOBIN (BEAKER) (test 28.9 pg 25.7-32.2 pfdh=365) MEAN CORPUSCULAR HEMOGLOBIN CONC (BEAKER) (test 33.9 GM/DL 32.3-36.5 lich=098) RED CELL DISTRIBUTION WIDTH (BEAKER) (test 11.6 % 11.6-14.4 rokv=386) PLATELET COUNT (BEAKER) (test jrxi=553) 304 K/CU MM 150-450 MEAN PLATELET VOLUME (BEAKER) (test dftu=401) 9.4 fL 9.4-12.4 NUCLEATED RED BLOOD CELLS (BEAKER) (test 0 /100 WBC 0-0 utvu=361) BASIC METABOLIC [id number] 10:58:00 Test Item Value Reference Range Comments SODIUM (BEAKER) (test 138 meq/L 136-145 hkdl=793) POTASSIUM (BEAKER) (test 3.9 meq/L 3.5-5.1 cdjb=316) CHLORIDE (BEAKER) (test 106 meq/L 98-107 dmdr=525) CO2 (BEAKER) (test 23 meq/L 22-29 yxuc=294) BLOOD UREA NITROGEN 18 mg/dL 7-21 (BEAKER) (test taca=877) CREATININE (BEAKER) (test 0.68 mg/dL 0.57-1.25 cwiq=347) GLUCOSE RANDOM (BEAKER) 144 mg/dL 70-105 (test tafl=995) CALCIUM (BEAKER) (test 9.1 mg/dL 8.4-10.2 xxeq=752) EGFR (BEAKER) (test 133 mL/min/1.73 sq m ESTIMATED GFR IS NOT qwlj=9251) ACCURATE CREATININE CLEARANCE IN PREDICTING GLOMERULAR FILTRATION RATE. ESTIMATED GFR IS NOT APPLICABLE FOR DIALYSIS PATIENTS. POCT-GLUCOSE [id number] 08:38:00 Test Item Value Reference Range Comments POC-GLUCOSE METER (BEAKER) 127 mg/dL 70-110 TESTED AT [address] (test zhzg=6214) [facility] [address] BLOOD [id number] 06:00:00 Test Item Value Reference Range Comments CULTURE (BEAKER) (test zdka=2719) No growth in 5 days POCT-GLUCOSE [id number] 05:50:00 Test Item Value Reference Range Comments POC-GLUCOSE METER (BEAKER) 136 mg/dL 70-110 TESTED AT [address] (test jplh=9114) [facility] [address] POCT-GLUCOSE [id number] 00:09:00 Test Item Value Reference Range Comments POC-GLUCOSE METER (BEAKER) 161 mg/dL 70-[address] [facility] [address] (test nyhn=3304) [facility] [address] POCT-GLUCOSE [id number] 17:05:00 Test Item Value Reference Range Comments POC-GLUCOSE METER (BEAKER) 160 mg/dL 70-110 TESTED AT [place] [id number] [facility] (test sefw=0250) [facility] [address] MR, BRAIN, [id number] 15:32:00FINAL REPORT MRI Brain with and without contrast INDICATION: ARMOR RECONNAISSANCE VEHICLE CREWMAN neoplasm, postop TECHNIQUE: Multiplanar, multisequence MR imaging of the brain was performed, utilizing the following imaging sequences: Axial T1, T2, FLAIR, DWI, GRE; sagittal T1; postcontrast axial, sagittal, andcoronal T1. COMPARISON: MRI brain 09/19/2017 FINDINGS:Right sided craniotomy changes are noted with an anterior temporal lobe operative cavity with internal hemorrhage, including dependent blood. There is small volume hemorrhages as well as ischemic and vasogenic edema in the adjacent temporal lobe andhippocampus. Allowing for T1 hyperintense blood products, there is negligible residual enhancing neoplasm. Nonenhancing signal changes in the insula, subinsular and basal ganglia region, operculum, andresidual temporal lobe are in keeping with edema and infiltrative neoplasm. Right hemispheric dural enhancement is likely reactive and due to granulation changes. There is residual mass effect with 3 mm leftward midline shift but no hydrocephalus. There is scattered pneumocephalus. A minimal extra-axial collection is seen beneath the craniotomy site. There is an overlying subgaleal collection containing gas and fluid. There is multifocal polypoid sinus mucosal disease with minimal fluid secretions and a moderate right mastoid effusion. The sella, craniocervical junction, and orbits are unremarkable. IMPRESSION: Since 09/19/2017, status post craniotomy for mass resection with operative site hemorrhages and local ischemic edema. Allowing for blood, negligible if any residual enhancing neoplasm. Nonenhancing signal changes persist, in keeping with infiltrative tumor. Advise MRI follow up. Signed: Bridger Wadswortheport Verified Date/Time: 09/23/2017 15:32:30 Reading Location: [facility] C013V Neuro Reading Room POCT-GLUCOSE [id number] 11:36:00 Test Item Value Reference Range Comments POC-GLUCOSE METER (BEAKER) 157 mg/dL 70-110 TESTED AT [address] (test mmnz=9214) [place] [address] [id number] 11:12:00 Test Item Value Reference Range Comments POTASSIUM (BEAKER) (test juwk=064) 4.0 meq/L 3.5-5.1 Check Serum Potassium level 2 hours after oral potassium replacement completed or 30 min after intravenous potassium replacement.[id number] 11:12:00 Test Item Value Reference Range Comments MAGNESIUM (BEAKER) (test fazg=381) 2.4 mg/dL 1.6-2.6 Check Serum Potassium level 2 hours after oral potassium replacement completed or 30 min after intravenous potassium replacement.POCT-GLUCOSE [id number] 07:40:00 Test Item Value Reference Range Comments POC-GLUCOSE METER (BEAKER) 135 mg/dL 70-110 TESTED AT [address] (test ntgk=9954) [place] [address] [id number] 04:59:00 Test Item Value Reference Range Comments PHOSPHORUS (BEAKER) (test mqvn=335) 2.8 mg/dL 2.3-4.7 [id number] 04:59:00 Test Item Value Reference Range Comments MAGNESIUM (BEAKER) (test bvew=599) 1.9 mg/dL 1.6-2.6 BASIC METABOLIC [id number] 04:59:00 Test Item Value Reference Range Comments SODIUM (BEAKER) (test 140 meq/L 136-145 uzpr=219) POTASSIUM (BEAKER) (test 3.8 meq/L 3.5-5.1 chvc=978) CHLORIDE (BEAKER) (test 108 meq/L 98-107 joja=509) CO2 (BEAKER) (test 21 meq/L 22-29 chzn=922) BLOOD UREA NITROGEN 11 mg/dL 7-21 (BEAKER) (test zdpi=301) CREATININE (BEAKER) (test 0.72 mg/dL 0.57-1.25 iosb=333) GLUCOSE RANDOM (BEAKER) 158 mg/dL 70-105 (test rtmp=802) CALCIUM (BEAKER) (test 8.7 mg/dL 8.4-10.2 kktq=959) EGFR (BEAKER) (test 124 mL/min/1.73 sq m ESTIMATED GFR IS NOT xkfn=6577) ACCURATE CREATININE CLEARANCE IN PREDICTING GLOMERULAR FILTRATION RATE. ESTIMATED GFR IS NOT APPLICABLE FOR DIALYSIS PATIENTS. CBC (HEMOGRAM ONLY)2017-09-23 04:42:00 Test Item Value Reference Range Comments WHITE BLOOD CELL COUNT (BEAKER) (test dbnq=428) 18.9 K/ L 3.5-10.5 RED BLOOD CELL COUNT (BEAKER) (test tgsc=791) 4.44 M/ L 4.63-6.08 HEMOGLOBIN (BEAKER) (test bute=830) 12.8 GM/DL 13.7-17.5 HEMATOCRIT (BEAKER) (test nqxp=063) 38.2 % 40.1-51.0 MEAN CORPUSCULAR VOLUME (BEAKER) (test tlzv=857) 86.0 fL 79.0-92.2 MEAN CORPUSCULAR HEMOGLOBIN (BEAKER) (test 28.8 pg 25.7-32.2 orhp=113) MEAN CORPUSCULAR HEMOGLOBIN CONC (BEAKER) (test 33.5 GM/DL 32.3-36.5 ebvr=454) RED CELL DISTRIBUTION WIDTH (BEAKER) (test 11.4 % 11.6-14.4 aagz=437) PLATELET COUNT (BEAKER) (test ykbl=263) 302 K/CU MM 150-450 MEAN PLATELET VOLUME (BEAKER) (test gzwx=693) 9.7 fL 9.4-12.4 NUCLEATED RED BLOOD CELLS (BEAKER) (test 0 /100 WBC 0-0 jtqf=049) [id number] 19:00:00 Test Item Value Reference Range Comments MAGNESIUM (BEAKER) (test 2.7 mg/dL 1.6-2.6 Specimen markedly hemolyzed ksve=049) TOXOPLASMA GONDII ANTIBODY, [id number] 13:56:00 Test Item Value Reference Range Comments TOXOPLASMA GONDII IGG (BEAKER) (test yhzn=945) Negative HEPATIC FUNCTION [id number] 06:05:00 Test Item Value Reference Range Comments TOTAL PROTEIN (BEAKER) (test lshi=691) 6.9 gm/dL 6.0-8.3 ALBUMIN (BEAKER) (test eoaa=1098) 4.1 g/dL 3.5-5.0 BILIRUBIN TOTAL (BEAKER) (test cykd=897) 0.9 mg/dL 0.2-1.2 BILIRUBIN DIRECT (BEAKER) (test bgxi=409) 0.3 mg/dL 0.1-0.5 ALKALINE PHOSPHATASE (BEAKER) (test xkdx=437) 89 U/L 40-150 AST (SGOT) (BEAKER) (test lyot=753) 25 U/L 5-34 ALT (SGPT) (BEAKER) (test unjv=240) 49 U/L 6-55 BASIC METABOLIC [id number] 06:05:00 Test Item Value Reference Range Comments SODIUM (BEAKER) (test 140 meq/L 136-145 pxqh=922) POTASSIUM (BEAKER) (test 4.0 meq/L 3.5-5.1 dnhl=423) CHLORIDE (BEAKER) (test 106 meq/L 98-107 nogw=402) CO2 (BEAKER) (test 25 meq/L 22-29 yxij=202) BLOOD UREA NITROGEN 11 mg/dL 7-21 (BEAKER) (test ldor=016) CREATININE (BEAKER) (test 0.79 mg/dL 0.57-1.25 jtgp=053) GLUCOSE RANDOM (BEAKER) 91 mg/dL 70-105 (test ygit=077) CALCIUM (BEAKER) (test 9.3 mg/dL 8.4-10.2 rrep=198) EGFR (BEAKER) (test 112 mL/min/1.73 sq m ESTIMATED GFR IS NOT fnny=8598) ACCURATE CREATININE CLEARANCE IN PREDICTING GLOMERULAR FILTRATION RATE. ESTIMATED GFR IS NOT APPLICABLE FOR DIALYSIS PATIENTS. CT, CHEST, WITH [id number] 03:01:00FINAL REPORT EXAMINATION: CT examinations of the chest, abdomen and pelviswith oral and IV contrast. CLINICAL HISTORY: Multiple brain lesions. Evaluate for primary neoplasm, metastatic disease or associated infection. COMPARISON EXAM: Brain MRI 09/19/2017 TECHNIQUE: Followingthe administration of IV contrast, axial tomographic images were acquired through the chest, abdomenand pelvis. Postprocessing was performed and coronal and sagittal reformatted images were created and reviewed. The exam was performed according to our departmental dose optimization program which includes automated exposure control, adjustment of the mA and/or kV according to patient's size and/or use of iterative reconstructive technique. FINDINGS: Chest: The thoracic aorta is normal in caliber. No evidence of an aortic dissection. The central pulmonary arteries are unremarkable. Evaluation of the smaller peripheral pulmonary arteries is limited by the non-PE protocol technique. The heart sizeis normal. No evidence of a pericardial effusion. The esophagus is decompressed. No evidence of pathologic axillary or mediastinal lymphadenopathy. The trachea and central airways are unremarkable. Curvilinear opacities are noted in the dependent portion of both lung bases compatible with atelectasis. No evidence of a discrete pulmonary nodule, pneumonia, pulmonary edema, pleural effusion, pneumothorax or pneumomediastinum. No evidence of an acute thoracic osseous abnormality or pathologic bone lesion. Abdomen and pelvis: The liver demonstrates homogeneous contrast enhancement. The gallbladder, bile ducts and pancreas are unremarkable. The spleen is mildly prominent measuring 13 cm. The right adrenal gland is unremarkable. The left adrenal gland is associated with subtle nodularity measuring 1 cm. Although a component may reflect partial volume averaging artifact, a small indeterminate adrenalnodule should also be considered. No evidence of renal obstruction, nephrolithiasis or discrete renal mass. The ureters are decompressed. The bladder is unremarkable. The prostate gland is mildly prominent. The stomach is grossly unremarkable. The loops of small bowel are normal in caliber. There is mild wall thickening of the distal small bowel including the terminal ileum. A moderate to large volume of inspissated stool is noted throughout the colon. The colonic fecal burden limits evaluation for an underlying mucosal lesion. No evidence of high-grade mechanical bowel obstruction, pneumatosis or pneumoperitoneum. No definite evidence of pathologically enlarged lymph nodes. The abdominal aorta isnormal in caliber. Contrast also opacifies the portal venous system, mesenteric vessels , renal vessels and the iliac arteries. Evaluation of the IVC and iliac veins is limited by timing of the contrastbolus. The testicles are incompletely visualized. The right testicle is associated with mild nodularsoft tissue fullness. No evidence of an acute osseous abnormality. A sclerotic 11 mm focus is noted in the left proximal femur. A small bone island is morphologically and statistically favored. Small sclerotic metastasis cannot be excluded. IMPRESSION : Left adrenal 1 cm indeterminate (benign versus malignant) nodule. Dedicated adrenal protocol MRI or noncontrast CT could be performed for more definitive tissue characterization. Moderate to large volume of inspissated stool throughout the colon suggesting dysmotility/constipation. The fecal burden limits evaluation for a colonic mucosal lesion. Mild wall thickening of the distal small bowel including the terminal ileum. Incomplete distention versus an ileitis. The right testicle is incompletely visualized but associated with mild nodular soft tissue fullness. Recommend clinical correlation. Dedicated scrotal ultrasound could be performed for evaluation if warranted. Small 1 cm sclerotic focus involving the left proximal femur. Bone island favored. Small sclerotic metastasis cannot be excluded. Mildly prominent spleen (13 cm). Signed : Fco Aldridge MDReport Verified Date/Time: 09/20/2017 03:01:30 Reading Location: [address] Reading Room [facility] [place], [id number] 03:01:00FINAL REPORT EXAMINATION: CT examinations of the chest, abdomen and pelviswith oral and IV contrast. CLINICAL HISTORY: Multiple brain lesions. Evaluate for primary neoplasm, metastatic disease or associated infection. COMPARISON EXAM: Brain MRI 09/19/2017 TECHNIQUE: Followingthe administration of IV contrast, axial tomographic images were acquired through the chest, abdomenand pelvis. Postprocessing was performed and coronal and sagittal reformatted images were created and reviewed. The exam was performed according to our departmental dose optimization program which includes automated exposure control, adjustment of the mA and/or kV according to patient' s size and/or use of iterative reconstructive technique. FINDINGS: Chest: The thoracic aorta is normal in caliber. No evidence of an aortic dissection. The central pulmonary arteries are unremarkable. Evaluation of the smaller peripheral pulmonary arteries is limited by the non-PE protocol technique. The heart sizeis normal. No evidence of a pericardial effusion. The esophagus is decompressed. No evidence of pathologic axillary or mediastinal lymphadenopathy. The trachea and central airways are unremarkable. Curvilinear opacities are noted in the dependent portion of both lung bases compatible with atelectasis. No evidence of a discrete pulmonary nodule, pneumonia, pulmonary edema, pleural effusion, pneumothorax or pneumomediastinum. No evidence of an acute thoracic osseous abnormality or pathologic bone lesion. Abdomen and pelvis : The liver demonstrates homogeneous contrast enhancement. The gallbladder, bile ducts and pancreas are unremarkable. The spleen is mildly prominent measuring 13 cm. The right adrenal gland is unremarkable. The left adrenal gland is associated with subtle nodularity measuring 1 cm. Although a component may reflect partial volume averaging artifact, a small indeterminate adrenalnodule should also be considered. No evidence of renal obstruction, nephrolithiasis or discrete renal mass. The ureters are decompressed. The bladder is unremarkable. The prostate gland is mildly prominent. The stomach is grossly unremarkable. The loops of small bowel are normal in caliber. There is mild wall thickening of the distal small bowel including the terminal ileum. A moderate to large volume of inspissated stool is noted throughout the colon. The colonic fecal burden limits evaluation for an underlying mucosal lesion. No evidence of high-grade mechanical bowel obstruction, pneumatosis or pneumoperitoneum. No definite evidence of pathologically enlarged lymph nodes. The abdominal aorta isnormal in caliber. Contrast also opacifies the portal venous system, mesenteric vessels, renal vessels and the iliac arteries. Evaluation of the IVC and iliac veins is limited by timing of the contrastbolus. The testicles are incompletely visualized. The right testicle is associated with mild nodularsoft tissue fullness. No evidence of an acute osseous abnormality. A sclerotic 11 mm focus is noted in the left proximal femur. A small bone island is morphologically and statistically favored. Small sclerotic metastasis cannot be excluded. IMPRESSION: Left adrenal 1 cm indeterminate (benign versus malignant) nodule. Dedicated adrenal protocol MRI or noncontrast CT could be performed for more definitive tissue characterization. Moderate to large volume of inspissated stool throughout the colon suggesting dysmotility/constipation. The fecal burden limits evaluation for a colonic mucosal lesion. Mild wall thickening of the distal small bowel including the terminal ileum. Incomplete distention versus an ileitis. The right testicle is incompletely visualized but associated with mild nodular soft tissue fullness. Recommend clinical correlation. Dedicated scrotal ultrasound could be performed for evaluation if warranted. Small 1 cm sclerotic focus involving the left proximal femur. Bone island favored. Small sclerotic metastasis cannot be excluded. Mildly prominent spleen (13 cm). Signed: Fco Aldridge MDReport Verified Date/Time: 09/20/2017 03:01:30 Reading Location: [address] Reading Room MR, BRAIN, [id number] 10:44:00[facility] protocol for operative planningFINAL REPORT MRI Brain with and without contrast Clinical History: brain massTechnique: MRI of the brain utilizing axial T1, T2, FLAIR, GRE, DWI, sagittal T1; and postgadoliniumaxial, sagittal, and coronal T1-weighted images. Stealth protocol treatment planning sequences are included. Comparisons: Outside MRI 09/18/2017 Findings: A cluster of irregularly enhancing nodules is again seen in the right anterior temporal lobe spanning approximately 5 cm in maximal dimension. Surrounding T2 FLAIR hyperintense white matter edema is unchanged. Mass effect is again seen with medial right uncal deviation effacing the right ambient cistern and contouring the midbrain. Mild narrowing of the right lateral ventricle is again seen without significant midline shift of the septum pellucidum. No other enhancing masses are seen. There is no evidence of acute infarct or hemorrhage. There is no hydrocephalus. There are no extra-axial fluid collections. The craniocervical junction is preserved. The major intracranial flow-voids appear patent. IMPRESSION: Since 09/18/2017, the right anterior temporal lobe cluster of irregularly enhancing masses is grossly unchanged. The differential diagnosis includes neoplasm versus atypical infection. Signed: Rupali Sher MDReport Verified Date/Time: 09/19/2017 10:44:22 Reading Location: [address] Neuro Reading Room CBC W/PLT COUNT & AUTO [id number] 08:30:00 Test Item Value Reference Range Comments WHITE BLOOD CELL COUNT (BEAKER) (test gtxc=124) 9.8 K/ L 3.5-10.5 RED BLOOD CELL COUNT (BEAKER) (test ngce=584) 4.84 M/ L 4.63-6.08 HEMOGLOBIN (BEAKER) (test jnla=984) 13.8 GM/DL 13.7-17.5 HEMATOCRIT (BEAKER) (test dpsl=626) 41.8 % 40.1-51.0 MEAN CORPUSCULAR VOLUME (BEAKER) (test mjhm=556) 86.4 fL 79.0-92.2 MEAN CORPUSCULAR HEMOGLOBIN (BEAKER) (test 28.5 pg 25.7-32.2 jbcp=940) MEAN CORPUSCULAR HEMOGLOBIN CONC (BEAKER) (test 33.0 GM/DL 32.3-36.5 cmxg=640) RED CELL DISTRIBUTION WIDTH (BEAKER) (test 11.8 % 11.6-14.4 olvd=551) PLATELET COUNT (BEAKER) (test azrv=840) 294 K/CU MM 150-450 MEAN PLATELET VOLUME (BEAKER) (test iqtp=658) 9.8 fL 9.4-12.4 NUCLEATED RED BLOOD CELLS (BEAKER) (test 0 /100 WBC 0-0 wpmn=185) NEUTROPHILS RELATIVE PERCENT (BEAKER) (test 64 % bjhw=229) LYMPHOCYTES RELATIVE PERCENT (BEAKER) (test 27 % ogrf=981) MONOCYTES RELATIVE PERCENT (BEAKER) (test 7 % xagx=852) EOSINOPHILS RELATIVE PERCENT (BEAKER) (test 2 % bvyy=029) BASOPHILS RELATIVE PERCENT (BEAKER) (test 1 % nxuy=150) NEUTROPHILS ABSOLUTE COUNT (BEAKER) (test 6.23 K/ L 1.78-5.38 fdjc=524) LYMPHOCYTES ABSOLUTE COUNT (BEAKER) (test 2.62 K/ L 1.32-3.57 sutf=441) MONOCYTES ABSOLUTE COUNT (BEAKER) (test 0.70 K/ L 0.30-0.82 pezl=584) EOSINOPHILS ABSOLUTE COUNT (BEAKER) (test 0.19 K/ L 0.04-0.54 xaaq=921) BASOPHILS ABSOLUTE COUNT (BEAKER) (test 0.05 K/ L 0.01-0.08 uiah=044) IMMATURE GRANULOCYTES-RELATIVE PERCENT (BEAKER) 0 % 0-1 (test kfzc=6843) SEDIMENTATION [id number] 23:07:00 Test Item Value Reference Range Comments SEDIMENTATION RATE, ERYTHROCYTE (BEAKER) (test 22 mm/HR 0-15 epml=190) HIV-1 ANTIGEN WITH HIV-1/2 [id number] 22:45:00 Test Item Value Reference Range Comments HIV-1 ANTIGEN WITH HIV 1\\T\\2 ANTIBODY (2) Nonreactive Nonreactive (BEAKER) (test ptrj=5439) HEPATIC FUNCTION [id number] 22:27:00 Test Item Value Reference Range Comments TOTAL PROTEIN (BEAKER) (test gpvu=269) 7.2 gm/dL 6.0-8.3 ALBUMIN (BEAKER) (test yhgi=2881) 4.3 g/dL 3.5-5.0 BILIRUBIN TOTAL (BEAKER) (test jjsf=674) 0.9 mg/dL 0.2-1.2 BILIRUBIN DIRECT (BEAKER) (test cndt=483) 0.3 mg/dL 0.1-0.5 ALKALINE PHOSPHATASE (BEAKER) (test iylu=678) 89 U/L 40-150 AST (SGOT) (BEAKER) (test ngqv=925) 34 U/L 5-34 ALT (SGPT) (BEAKER) (test pjdh=332) 57 U/L 6-55 BASIC METABOLIC [id number] 22:27:00 Test Item Value Reference Range Comments SODIUM (BEAKER) (test 140 meq/L 136-145 brce=002) POTASSIUM (BEAKER) (test 3.3 meq/L 3.5-5.1 pxqb=455) CHLORIDE (BEAKER) (test 108 meq/L 98-107 motr=137) CO2 (BEAKER) (test 22 meq/L 22-29 qncm=126) BLOOD UREA NITROGEN 10 mg/dL 7-21 (BEAKER) (test civy=890) CREATININE (BEAKER) (test 0.75 mg/dL 0.57-1.25 pgwv=110) GLUCOSE RANDOM (BEAKER) 127 mg/dL 70-105 (test qqvm=542) CALCIUM (BEAKER) (test 9.5 mg/dL 8.4-10.2 hevw=739) EGFR (BEAKER) (test 119 mL/min/1.73 sq m ESTIMATED GFR IS NOT tibn=6869) ACCURATE CREATININE CLEARANCE IN PREDICTING GLOMERULAR FILTRATION RATE. ESTIMATED GFR IS NOT APPLICABLE FOR DIALYSIS PATIENTS. C-REACTIVE [id number] 22:26:00 Test Item Value Reference Range Comments C-REACTIVE PROTEIN (BEAKER) (test hsyc=461) 0.89 mg/dL 0.00-0.50 [id number] 22:19:00 Test Item Value Reference Range Comments PROTIME (BEAKER) (test pblo=784) 14.6 seconds 11.7-14.7 INR (BEAKER) (test mjew=261) 1.1 <=5.9 PARTIAL THROMBOPLASTIN TIME (BEAKER) (test 30.9 seconds 22.5-36.0 owod=466) RECOMMENDED COUMADIN/WARFARIN INR THERAPY RANGESSTANDARD DOSE: 2.0 - 3.0 Includes: PROPHYLAXIS forvenous thrombosis, systemic embolization; TREATMENT for venous thrombosis and/or pulmonary embolus.HIGH RISK: Target INR is 2.5-3.5 for patients with mechanical heart valves.
--- NOTE | 2018-12-02 19:16 | ER ---
Nurse's Notes [facility] Name: Kei Munoz Age: 38 yrs Sex: Male : 1980 Arrival Date: 12/02/2018 Time: 18:33 Bed Waiting Private MD: Diagnosis: ED Course: 12/02 18:33 Patient arrived in ED. as 19:15 Patient's name was called from ER lobby. No response. Unable to locate patient. Will ak1 disposition as left without being seen by a provider. Administered Medications: No medications were administered Outcome: 19:16 Patient left the ED. ak1 Signatures: Anna Marie Landin Amber, RN RN ak1
== END 2018-12-02 19:16 | disposition left against medical advice (07) ==
LOC: ER 18:30
DX: Z53.21 Procedure and treatment not carried out due to patient leaving prior to being seen by health care provider (principal)